=== PATIENT | male | born 1955 | race Caucasian/White ===

== ENCOUNTER 2020-11-14 19:19 | Emergency (ER) | payer OTHER ==
[2020-11-14 19:26] VITALS: BP 146/80; PULSE 75; TEMP 97; BMI 23.6
[2020-11-14] MEDS ORDERED: NAPROXEN 500 MG TABLET PO ONE (20:25)
[2020-11-14] MEDS ORDERED: NAPROXEN 500 MG TABLET ONE (20:26)
== END 2020-11-14 22:17 | disposition home or self-care (01) ==
LOC: JERFT 19:19
DX: S93.401A Sprain of unspecified ligament of right ankle, initial encounter (principal)
CPT/HCPCS: 73610-TC-RT-FY; 73630-TC-RT-FY; 99284-25